=== PATIENT | female | born 1995 | race American Indian/Alaskan Native ===

== ENCOUNTER 2021-09-07 04:39 | Inpatient (IN) | payer MEDICAID ==
--- NOTE | 2021-09-07 07:59 | History and Physical Report ---
History of Present Illness Date of examination: 09/07/21 Date of admission: 09/07/2021 Chief complaint: I'm chantal. History of present illness: Pt is a @ 39.5 wks who presented to triage for c/o painful regular contractions. She is a transfer patient to our office at 35 weeks. This has been uncomplicated. On her initial OB labs there was a positive Hep C with resulting antibody as negative. EDC Confirmation: 09/09/2021 Gestational Age: 39.5 weeks on admission Past History : 2 Term Births: 0 Premature Births: 0 Living Children: 0 Para: 0 Mult. Births: 0 Prev : 0 Aborta: 1 Elect. Ab: 1 Spont. Ab: 0 Ectopics: 0 # 1 Delivery date: 2018 Delivery type: EAB Past Medical History: Reviewed and updated today: Anemia PCOS (2019) Past Surgical History: Reviewed and updated today: D&C: (2018) EAB Family History Summary: Other Family Member - Has No Family History of Ovarvian Cancer - Entered On: 08/10/2021 Other Family Member - Has No Family History of Colon Cancer - Entered On: 08/10/2021 Other Family Member - Has No Family History of Breast Cancer - Entered On: 08/10/2021 Other Family Member - Has Family History of Hypertension - Entered On: 08/10/2021 Other Family Member - Has Family History of Diabetes - Entered On: 08/10/2021 Social History: Marital Status: Single Children: 0 Occupation: Unemployment Smoking History: Patient has never smoked. 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 Infection History Hx of STD: none Personal hx. of genital herpes: no Genetic History Congenital Heart Defect: Mom: no Dad: no Rolando Disease: Mom: no Dad: no Thalassemia Mom: no Dad: no Neural Tube Defect Mom: no Dad: no Down's Syndrome Mom: no Dad: no Simeon-Sachs Mom: no Dad: no Sickle Cell Disease/Trait Mom: no Dad: no Hemophilia Mom: no Dad: no Muscular Dystrophy Mom: no Dad: no Cystic Fibrosis Mom: no Dad: no [place] Chorea Mom: no Dad: no Mental Retardation Mom: no Dad: no Fragile X Mom: no Dad: no Other Genetic/Chromosomal Disorder Mom: no Dad: no Child w/other defect Mom: no Dad: no Enviromental Exposures Xray Exposure: no Medication, drug, or alcohol use since LMP: no Chemical/Other Exposure: no Exposure to Cat Liter: no Active Medications (reviewed today): None Current Allergies (reviewed today): No known allergies Laboratory Results Past History Past Medical History: hematologic disorders (Anemia) Past Surgical History: 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) Family/Genetic History: diabetes, hypertension Social history: no significant social history - Obstetrical History Expected Date of Delivery: 09/09/21 Actual Gestation: 39 Week(s) 5 Day(s) : 2 Para: 0 Hx # Term Pregnancies: 0 Number of Pregnancies: 0 Spontaneous Abortions: 1 Induced : 0 Number of Living Children: 0 Medications and Allergies Allergies Allergy/AdvReac Type Severity Reaction Status Date / Time No Known Allergies Allergy Unverified 09/07/21 05:06 Review of Systems All systems: negative - Vital Signs Vital signs: Vital Signs Pulse BP 77 128/76 09/07/21 04:45 09/07/21 04:45 Temp Pulse Resp BP Pulse Ox 98.6 F 98 H 128/76 99 09/07/21 04:53 09/07/21 05:21 09/07/21 04:45 09/07/21 05:21 - Physical Exam Cardiovascular: Regular rate Lungs: Positive: Normal air movement Abdomen: Positive: normal appearance, soft Genitourinary (Female): Positive: normal external genitalia, normal perenium Vulva: both: normal Uterus: Positive: enlarged (Normal 39 week gestation abdomen) Extremities: Positive: normal - Obstetrical FHR: category 1 Uterine Contraction Monitor Mode: External Cervical Dilatation: 6 (BBOW felt.) Cervical Effacement Percentage: 90 station: -2 Results Result Diagrams: 09/07/21 07:55 All other labs normal. GBS NEGATIVE HBsAg Screen Negative Negative *1 RPR Non Reactive Non Reactive *2 Rubella Antibodies, IgG 6.89 index Immune >0.99 *3 Non-immune <0.90 Equivocal 0.90 - 0.99 Immune >0.99 ABO Grouping O *4 Rh Factor Positive *5 Please note: Prior records for this patient's ABO / Rh type are not available for additional verification. Antibody Screen Negative Negative *6 Tests: (2) HCV Antibody RFX to Quant PCR ([id number]) HCV Ab [H] 7.8 s/co ratio 0.0-0.9 *31 Tests: (3) HCV RT-PCR, Quant (Non-Graph) ([id number]) ! Hepatitis C Quantitation HCV Not Detected IU/mL *32 ! HCV log10 <No Reported Value> *33 ! Test Information: SPRCS *34 The quantitative range of this assay is 15 IU/mL to 100 million IU/mL. ! Interpretation: NNAT *35 Positive HCV antibody screen without the presence of HCV RNA is consistent with a resolved past infection or a false positive HCV antibody. Consider repeat testing after one month. Tests: (4) HB Solu + Rflx Frac ([id number]) Hemoglobin (Hgb) Solubility Negative Negative *36 Tests: (5) HIV Ab/p24 Ag with Reflex ([id number]) HIV Ab/p24 Ag Screen Non Reactive Non Reactive *37 HIV Negative HIV-1/HIV-2 antibodies and HIV-1 p24 antigen were NOT detected. There is no laboratory evidence of HIV infection. Tests: (6) Gest. Diabetes 1-Hr Screen ([id number]) ! Gestational Diabetes Screen 99 mg/dL 65-139 *38 According to ADA, a glucose threshold of >139 mg/dL after 50-gram load identifies approximately 80% of women with gestational diabetes mellitus, while the sensitivity is further increased to approximately 90% by a threshold of >129 mg/dL. Assessment and Plan A: 26 y.o. @ 39.5 wks, active labor. Either past history of Hep C infection or false positive. - Patient Problems (1) History of hepatitis C virus infection Current Visit: Yes Status: Acute Plan to address problem: Hep C positive on initial labs. - Either a false positive or past infection. - Will order Hep C during this admission. (2) Active labor at term Current Visit: Yes Status: Acute Plan to address problem: Admit to labor and delivery. Initiate IV. Draw admission labs. Pain management: IV pain medication and epidural. GUERDA team for delivery. Anticipate . (3) with 39 completed weeks gestation Current Visit: Yes Status: Acute Plan to address problem: Continuous EFM to monitor status.
[2021-09-07] MEDS ORDERED: LACTATED RINGERS 1,000 ML IV SCH (08:00)
[2021-09-07] MEDS ORDERED: OXYTOCIN DRIP 30 UNITS/500 ML BAG IV SCH ×3 (08:00→18:05)
[2021-09-07] MEDS ORDERED: LACTATED RINGERS 1,000 ML ONE (08:09)
[2021-09-07] MEDS ORDERED: METHYLERGONOVINE MALEATE 0.2 MG/ML VIAL IM PRN (08:30)
[2021-09-07] MEDS ORDERED: TERBUTALINE 1 MG/1 ML INJ SUB-Q PRN (08:30)
[2021-09-07] MEDS ORDERED: BUTORPHANOL 2 MG/1 ML INJ IV PRN (08:30)
[2021-09-07] MEDS ORDERED: OXYTOCIN 10 UNIT/1 ML INJ IM PRN (08:30)
[2021-09-07] MEDS ORDERED: PROMETHAZINE 25 MG TAB PO PRN ×2 (08:30→18:05)
[2021-09-07] MEDS ORDERED: ONDANSETRON 4 MG/2 ML INJ IV PRN ×2 (08:30→18:05)
[2021-09-07] MEDS ORDERED: fentaNYL 100 MCG/2 ML INJ IV PRN (08:30)
[2021-09-07] MEDS ORDERED: miSOPROStol 200 MCG TAB PR PRN (08:30)
[2021-09-07] MEDS ORDERED: MINERAL OIL 30 ML ORAL LIQD PO PRN (08:30)
[2021-09-07] MEDS ORDERED: NALOXONE 0.4 MG/1 ML INJ IV PRN ×2 (08:30→10:00)
[2021-09-07] MEDS ORDERED: LIDOCAINE (2%) 20 MG/1 ML VIAL 20 ML MDV INFILTRATI SCH (08:30)
[2021-09-07] MEDS ORDERED: CARBOPROST TROMETHAMINE 250 MCG/1 ML INJ IM PRN (08:30)
[2021-09-07] MEDS ORDERED: ePHEDrine SULFATE 50 MG/1 ML INJ IV PRN ×2 (08:30→10:00)
[2021-09-07] MEDS ORDERED: LOPERAMIDE 2 MG CAP PO PRN (08:30)
[2021-09-07] MEDS ORDERED: ACETAMINOPHEN 325 MG TAB PO PRN (08:30)
[2021-09-07 08:32] LABS: Hematocrit 27.1 % (30.3-42.9); Mean Corpuscular HGB Conc 33 % (30-34); Mean Corpuscular Volume 72 fl (79-97); Platelet Count 317 K/mm3 (140-440); Red Cell Distribution Width 14.4 % (13.2-15.2)
--- NOTE | 2021-09-07 09:48 | Anesthesia Consultation ---
Anesthesia Consult and Med Hx Date of service: 09/07/21 - Airway Anesthetic Teeth Evaluation: Good ROM Head & Neck: Adequate Mallampati Class: Class II - Pulmonary Exam CTA: Yes - Cardiac Exam Cardiac Exam: RRR - Pre-Operative Health Status ASA Pre-Surgery Classification: ASA2 Proposed Anesthetic Plan: Epidural - Pulmonary Hx Smoking: No Hx Asthma: No Hx Respiratory Symptoms: No SOB: No COPD: No Home Oxygen Therapy: No Hx Pneumonia: No Hx Sleep Apnea: No - Cardiovascular System Hx Hypertension: No Hx Coronary Artery Disease: No Hx Heart Attack/AMI: No Hx Angina: No Hx Percutaneous Transluminal Coronary Angioplasty (PTCA): No Hx Cardia Arrhythmia: No Hx Pacemaker: No Hx Internal Defibrillator: No Hx Valvular Heart Disease: No Hx Heart Murmur: No Hx Peripheral Vascular Disease: No - Central Nervous System Hx Neuromuscular Disorder: No Hx Seizures: No CVA: No Hx Back Pain: No Hx Psychiatric Problems: No - Gastrointestinal Hx Ulcer: No Hx Gastroesophageal Reflux Disease: No - Endocrine Hx Renal Disease: No Hx End Stage Renal Disease: No Hx Cirrhosis: No Hx Liver Disease: No Hx Insulin Dependent Diabetes: No Hx Non-Insulin Dependent Diabetes: No Hx Thyroid Disease: No Hx Hypothyroidism: No Hx Hyperthyroidism: No - Hematic Hx Anemia: No Hx Sickle Cell Disease: No - Other Systems Hx Alcohol Use: No Hx Substance Use: No Hx Cancer: No Hx Obesity: No
--- NOTE | 2021-09-07 09:49 | Anesthesia Day of Surgery ---
Anesthesia Day of Surgery - Day of Surgery Patient Examined: Yes Patient H&P Reviewed: Yes Patient is NPO: Yes Beta Blockers: No Cardiac Clearance: No Pulmonary Clearance: No Jakub's Test: N/A
[2021-09-07] MEDS ORDERED: fentaNYL-BUPIV 2 MCG/ML-0.125% 200 MCG/100 ML BAG EPIDURAL SCH (10:00)
--- NOTE | 2021-09-07 10:02 | Progress Note ---
Labor Epidural - Labor Epidural Start Time: 09:32 Stop Time: :40 Performed by:: NILSON DEGROOT Procedure: Epidural Requested for Labor Pain. H&P and PT Chart reviewed and consent obtained. Time out performed and the procedure was explained, all questions answered. Patient was placed in a sitting position with monitors applied. The PTs back was prepped and draped in usual sterile fashion. The Skin was localized with 3 mL of 1% lidocaine at L3-L4. A 17-gauge Touhy epidural needle was advanced to ANANDA with saline at 7 cm and no blood/CSF was noted via epidural needle. Epidural catheter was advanced to 12 cm. There was negative aspiration for blood and CSF in the catheter and negative response to a test dose of 3 ml 1.5% lidocaine w/ Epi and a sterile dressing was applied Patient tolerated the procedure well and there were no immediate complications noted.
--- NOTE | 2021-09-07 10:04 | Progress Note ---
Assessment and Plan A: 26 y.o. @ 39.5 wks, active labor. AROM. - Patient Problems (1) Active labor at term Current Visit: Yes Status: Acute Plan to address problem: Comfortable with epidural. (2) with 39 completed weeks gestation Current Visit: Yes Status: Acute Plan to address problem: Continue to monitor progress of labor. Anticipate . Subjective - Subjective Date of service: 09/07/21 Principal diagnosis: IUP @ 39.5 wks, active labor Interval history: Pt comfortable with epidural. Patient reports: movement normal, no new complaints, no loss of fluid, no vaginal bleeding, no contractions Objective - Vital Signs Vital Signs: Vital Signs - 12hr 09/07/21 09/07/21 09/07/21 04:45 04:46 04:51 Temperature Pulse Rate 77 78 108 H Respiratory Rate Blood Pressure 128/76 O2 Sat by Pulse 100 100 Oximetry 09/07/21 09/07/21 09/07/21 04:53 04:56 05:01 Temperature 98.6 F Pulse Rate 106 H 117 H Respiratory Rate Blood Pressure O2 Sat by Pulse 99 99 Oximetry 09/07/21 09/07/21 09/07/21 05:02 05:06 05:11 Temperature Pulse Rate 113 H 88 87 Respiratory Rate Blood Pressure O2 Sat by Pulse 69 L 100 99 Oximetry 09/07/21 09/07/21 09/07/21 05:16 05:21 09:16 Temperature Pulse Rate 104 H 98 H Respiratory Rate Blood Pressure O2 Sat by Pulse 100 99 100 Oximetry 09/07/21 09/07/21 09/07/21 09:18 09:21 09:26 Temperature Pulse Rate 97 H 85 121 H Respiratory Rate Blood Pressure 130/57 O2 Sat by Pulse 99 98 Oximetry 09/07/21 09/07/21 09/07/21 09:31 09:33 09:36 Temperature Pulse Rate 109 H 106 H 117 H Respiratory Rate Blood Pressure 132/72 O2 Sat by Pulse 100 100 Oximetry 09/07/21 09/07/21 09/07/21 09:41 09:43 09:45 Temperature Pulse Rate 119 H 122 H 102 H Respiratory Rate Blood Pressure 133/69 123/55 114/53 O2 Sat by Pulse 99 Oximetry 09/07/21 09/07/21 09/07/21 09:46 09:47 09:49 Temperature 99.3 F Pulse Rate 96 H 100 H 90 Respiratory 18 Rate Blood Pressure 128/65 116/57 O2 Sat by Pulse 100 Oximetry 09/07/21 09/07/21 09/07/21 09:51 09:52 09:54 Temperature Pulse Rate 106 H 109 H 95 H Respiratory Rate Blood Pressure 99/50 99/49 100/52 O2 Sat by Pulse 100 Oximetry 09/07/21 09/07/21 09/07/21 09:56 09:58 10:00 Temperature Pulse Rate 111 H 107 H 114 H Respiratory Rate Blood Pressure 96/53 102/55 109/55 O2 Sat by Pulse 100 Oximetry - Exam Narrative Exam: Comfortable with epidural. Not feeling any vaginal pressure. AROM clear fluid. Cardiovascular: Regular rate Lungs: Normal air movement Abdomen: Present: normal appearance, soft Vulva: both: normal Uterus: Present: normal FHR: category 1 Uterine Contraction Monitor Mode: External Cervical Dilatation: 10 (AROM clear fluid.) Cervical Effacement Percentage: 100 station: 0 Uterine Contraction Pattern: Regular Uterine Tone Measurement Phase: Resting Uterine Contraction Intensity: Moderate Extremities: normal - Labs Labs: Abnormal Labs 09/07/21 07:55 Hgb 9.0 L Hct 27.1 L MCV 72 L MCH 24 L Laboratory Results - last 24 hr 09/07/21 09/07/21 09/07/21 05:05 07:55 07:55 WBC 10.7 RBC 3.80 Hgb 9.0 L Hct 27.1 L MCV 72 L MCH 24 L MCHC 33 RDW 14.4 Plt Count 317 Membranes Rupture Negative Syphilis IgG/IgM Ab Nonreactive Blood Type 09/07/21 07:55 WBC RBC Hgb Hct MCV MCH MCHC RDW Plt Count Membranes Rupture Syphilis IgG/IgM Ab Blood Type O POSITIVE
--- NOTE | 2021-09-07 12:46 | Procedure Note ---
OB Delivery Note - Delivery Date of Delivery: 09/07/21 Construction Consultant: YUNG ROCA Estimated blood loss: 200cc - Vaginal Delivery presentation: vertex Delivery position: OA Intrapartum events: none Delivery induction: none Delivery augmentation: rupture of membranes Delivery monitor: external FHT, external uterine Route of delivery: Delivery placenta: spontaneous Delivery cord: 3 umbilical vessels Episiotomy: none Delivery laceration: 2nd degree Delivery repair: vicryl Anesthesia: epidural Delivery comments: of viable male infant. Infant to mother's abdomen for skin to skin. Cord clamped. Cut by FOC. Spontaneous delivery of placenta, intact, compete, 3 vessels noted. Perineum and vagina inspected. 2nd degree noted, repaired with 3- 0 Vicryl. Fundus firm, minimal bleeding noted. Blood loss: 200ml. Infant Apgars 8,9. Infant weight 7-10. Sponges and instruments counted with RN X2 and correct X2. and mother left in stable condition in care of RN. - A at 1 minute: 8 at 5 minutes: 9 Infant Gender: Male (Radha, 7-10)
[2021-09-07] MEDS ORDERED: BENZOCAINE/MENTHOL 20/0.5% TOP SPRAY 56 GM TP PRN (18:05)
[2021-09-07] MEDS ORDERED: diphenhydrAMINE 25 MG CAP PO PRN (18:05)
[2021-09-07] MEDS ORDERED: PROMETHAZINE 25 MG RECT SUPP PR PRN (18:05)
[2021-09-07] MEDS ORDERED: oxyCODONE /ACETAMINOPHEN 5-325MG TAB PO PRN (18:05)
[2021-09-07] MEDS ORDERED: MAGNESIUM HYDROXIDE (MOM) ORAL LIQD UDC PO PRN (18:05)
[2021-09-07] MEDS ORDERED: miSOPROStol 100 MCG TAB PR PRN (18:05)
[2021-09-07] MEDS ORDERED: ACETAMINOPHEN 500 MG TAB PO PRN (18:05)
[2021-09-07] MEDS ORDERED: LANOLIN/ZINC/DIMETHICONE (LANSINOH) 7 GM TP PRN ×2 (18:05)
[2021-09-07] MEDS: IBUPROFEN 800 MG TAB PO SCH (18:25)
[2021-09-07] MEDS ORDERED: DOCUSATE SODIUM 100 MG CAP PO SCH (22:00)
[2021-09-08] MEDS: WITCH HAZEL/ GLYCERIN PAD TP PRN ×2 (00:02→16:52)
[2021-09-08] MEDS: IBUPROFEN 800 MG TAB PO SCH ×2 (00:02→06:29)
[2021-09-08 01:31] LABS: Hematocrit 25.6 % (30.3-42.9); Hemoglobin 8.2 gm/dl (10.1-14.3)
[2021-09-08] MEDS ORDERED: TETANUS,DIPH,PERTUSS(ACELL) VACCINE 0.5 ML SYRINGE IM ONE (06:00)
--- NOTE | 2021-09-08 08:13 | Discharge Summary ---
Providers - Providers Date of Admission: 09/07/21 04:40 Date of discharge: 09/08/21 Attending physician: CODEY CHAMPION 09/07/21 18:05 Consult to Steam Shovel Operator [CONS] Routine Reason For Exam: assistance with , SNS Primary care physician: CODEY CHAMPION Hospitalization Reason for admission: labor Condition: Good Pertinent studies: post delivery H&H 8.2/25.6, asymptomatic anemia d/t acute blood loss. Procedures: Hospital course: uncomplicated and course Disposition: 01 HOME / SELF CARE / HOMELESS Final Discharge Diagnosis (Prints w/discharge instructions): vaginal Time spent for discharge: 15 - Discharge Diagnoses (1) (normal spontaneous vaginal delivery) Status: Acute Core Measure Documentation - Palliative Care Palliative Care/ Comfort Measures: Not Applicable - Core Measures Any of the following diagnoses?: none Exam - Constitutional Vitals: Temp Pulse Resp BP Pulse Ox 97.8 F 87 18 112/61 100 09/08/21 00:12 09/08/21 00:12 09/08/21 07:29 09/08/21 00:12 09/08/21 00:12 General appearance: Present: no acute distress, well-nourished - EENT Eyes: Present: PERRL ENT: hearing intact - Neck Neck: Present: supple, normal ROM - Respiratory Respiratory effort: normal Respiratory: bilateral: CTA - Cardiovascular Rhythm: regular Heart Sounds: Absent: rub, click - Extremities Extremities: No edema Peripheral Pulses: within normal limits - Abdominal General gastrointestinal: Present: soft, non-tender, non-distended, normal bowel sounds Female genitourinary: Present: normal - Integumentary Integumentary: Present: clear, warm, dry - Musculoskeletal Musculoskeletal: gait normal, strength equal bilaterally - Psychiatric Psychiatric: appropriate mood/affect, intact judgment & insight - Neurologic Neurologic: CNII-XII intact, moves all extremities - Additional findings Additional findings: lochia scant, fundus firm Plan Activity: no restrictions Diet: regular Follow up with: CODEY CHAMPION MD [Primary Care Provider] - 7 Days (Congratulations! Please call [phone] to schedule your son's circumcision in 1 week and your visit in 4-6 weeks. Bring EMLA cream to your son's appointment and wait for instructions. call for any questions or concerns.) Prescriptions: Lidocain2.5%/Prilocai2.5% [Emla] 1 applic TP ONCE #1 tube Ferrous Sulfate [Feosol 325 MG tab] 325 mg PO BID #60 tablet Ibuprofen [Motrin] 800 mg PO Q8HR PRN #20 tablet PRN Reason: Pain, Moderate (4-6)
[2021-09-08] MEDS ORDERED: FERROUS SULFATE 325 MG TAB PO SCH (10:00)
[2021-09-08] MEDS ORDERED: PRENATAL VIT27-FE FUMARATE-FOLIC ACID VIT TAB PO SCH (10:00)
--- NOTE | 2021-09-08 10:56 | Post Anesthesia Evaluation ---
- Post Anesthesia Evaluation Patient Participated: Yes Airway Patent: Yes Stable Respiratory Function: Yes Nausea/Vomiting: No Temp > 96.8F: Yes Pain Manageable: Yes Adequeate Hydration: Yes Anesthesia Complications: No Block Receding Appropriately: Yes Patient on Ventilator: No
[2021-09-08 13:08] VITALS: BP 98/51
== END 2021-09-08 18:30 | disposition home or self-care (01) | DRG 774 ==
LOC: TRG 04:39 → APU 04:40 → TRG 08:15 → LD 09:28 → OB 17:43
PROVIDERS: ADMIT Obstetrics & Gynecology; ATTEND Obstetrics & Gynecology
PROC: 10E0XZZ Delivery of Products of Conception, External Approach (ICD-10-PCS; principal; 2021-09-07)
PROC: 0KQM0ZZ Repair Perineum Muscle, Open Approach (ICD-10-PCS; 2021-09-07)
PROC: 3E0R3BZ Introduction of Anesthetic Agent into Spinal Canal, Percutaneous Approach (ICD-10-PCS; 2021-09-07)
PROC: 00HU33Z Insertion of Infusion Device into Spinal Canal, Percutaneous Approach (ICD-10-PCS; 2021-09-07)
PROC: 3E0234Z Introduction of Serum, Toxoid and Vaccine into Muscle, Percutaneous Approach (ICD-10-PCS; 2021-09-08)
DX: O98.42 Viral hepatitis complicating childbirth (principal); O70.1 Second degree perineal laceration during delivery; Z37.0 Single live birth; D62 Acute posthemorrhagic anemia; Z23 Encounter for immunization; Z3A.39 39 weeks gestation of pregnancy; O90.81 Anemia of the puerperium; B19.20 Unspecified viral hepatitis C without hepatic coma
CPT/HCPCS: 36415; 84112; 85014; 85018; 85027; 86592; 86850; 86900; 86901; 87517; G0378; J3490; J2590; J3010; J7120